=== PATIENT | female | born 1995 | race Caucasian/White ===

== ENCOUNTER 2018-08-04 21:02 | Emergency (ER) | payer MEDICAID ==
[2018-08-04 21:11] VITALS: BP 120/77
--- NOTE | 2018-08-04 21:26 | EDM.PDOC ---
ED HPI GENERAL MEDICAL PROBLEM - General Chief Complaint: Lower Extremity Injury/Pain Stated Complaint: left foot pain Time Seen by Provider: 08/04/18 21:15 Source of Information: Reports: Patient History Limitations: Reports: No Limitations - History of Present Illness INITIAL COMMENTS - FREE TEXT/NARRATIVE: Patient comes into the emergency department with complaint of left foot pain. Patient states that she was at home walking across her bedroom floor and she stepped on one of her belt mellisa which had a pinpoint 2 cm hook that she stepped on. The object did not become lodged in her skin. She was able to control the bleeding with minimal effort and it stopped on its own. She comes into the emergency department for further evaluation. Patient denies having any numbness, tingling, loss of sensation, swelling, redness, or pain. Onset: Today, Sudden Location: Reports: Lower Extremity, Left Improves with: Reports: None Worsens with: Reports: None Associated Symptoms: Reports: No Other Symptoms Left Foot Pain Score (Numeric/FACES): 7 - Related Data Allergies Allergy/AdvReac Type Severity Reaction Status Date / Time No Known Allergies Allergy Verified 07/06/15 10:45 Home Meds: Home Meds Amoxicillin/Clavulanate K [Augmentin 875 MG/125 MG] 1 tab PO Q12HR #20 tablet [Rx] Multivitamin [Multivitamins] 1 each PO DAILY 07/06/15 [History] predniSONE [Prednisone] 20 mg PO BID #10 tablet 07/06/15 [Rx] Past Medical History - Past Health History Medical/Surgical History: Denies Medical/Surgical History Social & Family History - Tobacco Use Smoking Status *Q: Never Smoker Review of Systems - Review of Systems Review Of Systems: See Below Constitutional: Reports: No Symptoms Eyes: Reports: No Symptoms Respiratory: Reports: No Symptoms Cardiovascular: Reports: No Symptoms Musculoskeletal: Reports: No Symptoms Skin: Reports: No Symptoms Neurological: Reports: No Symptoms Psychiatric: Reports: No Symptoms ED EXAM, GENERAL - Physical Exam Exam: See Below Exam Limited By: No Limitations General Appearance: Alert, WD/WN, No Apparent Distress Head: Atraumatic, Normocephalic Peripheral Pulses: 3+: Radial (L), Radial (R), Dorsalis Pedis (L), Dorsalis Pedis (R) Extremities: Normal Range of Motion, Non-Tender, No Pedal Edema, Normal Capillary Refill, Other (pinpoint superficial opening with dry blood present on the left plantar foot. ) Neurological: Alert, Oriented, Normal Gait Psychiatric: Normal Affect, Normal Mood Course - Vital Signs Last Recorded V/S: Last Vital Signs Temp 36.1 C 08/04/18 21:08 Pulse 81 08/04/18 21:08 Resp 18 08/04/18 21:08 BP 120/77 08/04/18 21:08 Pulse Ox 97 08/04/18 21:08 - Orders/Labs/Meds Orders: Active Orders 24 hr Category Date Time Status Vaccines to be Administered [RC] PER UNIT ROUTINE Care 08/04/18 21:20 Ordered Diphth,Pertuss(Acell),Tet Vac [Adacel] Med 08/04/18 21: Once 0.5 ml IM .ONCE ONE Departure - Departure Time of Disposition: 21:35 Disposition: Home, Self-Care 01 Condition: Good Clinical Impression: Puncture wound - Discharge Information *PRESCRIPTION DRUG MONITORING PROGRAM REVIEWED*: Not Applicable *COPY OF PRESCRIPTION DRUG MONITORING REPORT IN PATIENT NELIDA: Not Applicable Instructions: Puncture Wound Additional Instructions: 1. Keep the area clean and dry 2. Ensure you are wearing proper footwear 3. Can use triple antibiotic cream over the wound 4. Can take ibuprofen or Tylenol as needed for any discomfort 5. Activity and diet as tolerated 6. Can use ice over the area to help with any swelling if it does occur 7. Follow up as needed with your PCP or if infection symptoms do occur 8. Call with any questions or concerns - My Orders Last 24 Hours: My Active Orders 08/04/18 21:19 Diphth,Pertuss(Acell),Tet Vac [Adacel] 0.5 ml IM .ONCE ONE 08/04/18 21:20 Vaccines to be Administered [RC] PER UNIT ROUTINE - Assessment/Plan Last 24 Hours: My Active Orders 08/04/18 21: Diphth,Pertuss(Acell),Tet Vac [Adacel] 0.5 ml IM .ONCE ONE 08/04/18 21:20 Vaccines to be Administered [RC] PER UNIT ROUTINE Assessment:: 1. foot injury Plan: 1. Cleanse wound 2. Place wound dressing 3. tdap given in the ER. Last one on [place] record was 2009. 4. Discharge education given regarding keeping the wound clean, proper foot wear , and follow up 5. All questions and concerns answered prior to discharge.
[2018-08-04] MEDS: Diphtheria,Pertussis(Acell),Tetanus Vaccine 0.5 ML Syringe IM ONE (21:27)
== END 2018-08-04 21:31 | disposition home or self-care (01) ==
LOC: VM.ED 21:02
DX: S91.332A Puncture wound without foreign body, left foot, initial encounter (principal); Z23 Encounter for immunization; W45.8XXA Other foreign body or object entering through skin, initial encounter
CPT/HCPCS: 90471; 90715; 99283